=== PATIENT | female | born 1965 | race Caucasian/White ===

== ENCOUNTER → 2019-10-12 | Outpatient (REF) | payer MEDICARE ==
[2019-10-12 13:31] LABS: CHOLESTEROL RISK RATIO 2.359 (<5)
== END ==
LOC: M SFHCADAM 10:44
PROVIDERS: ATTEND Physician Assistant Medical
DX: E78.2 Mixed hyperlipidemia (principal)

== ENCOUNTER → 2019-10-12 | Outpatient (CLI) | payer MEDICARE ==
[2019-10-12 13:05] LABS: BASO # 0.1 10^3/uL (0.0-0.2); BASO % 1.1 % (0.0-1.0); EOS # 0.1 10^3/uL (0.0-0.5); EOS % 1.3 % (0.0-3.0); HEMATOCRIT 42.9 % (36.0-47.0); HEMOGLOBIN 13.6 g/dl (12.0-15.5); LYMPH # 1.6 10^3/uL (1.5-5.0); LYMPH % 24.8 % (24.0-44.0); MEAN CORPUSCULAR HEMOGLOBIN 29.3 pg (27.0-33.0); MEAN CORPUSCULAR HGB CONC 31.7 g/dl (32.0-36.5); MEAN CORPUSCULAR VOLUME 92.5 fl (80.0-96.0); MONO # 0.5 10^3/uL (0.0-0.8); MONO % 8.2 % (0.0-5.0); NEUTROPHILS # 4.1 10^3/uL (1.5-8.5); NEUTROPHILS % 64.3 % (36.0-66.0); PLATELET COUNT, AUTOMATED 416 10^3/uL (150-450); RED BLOOD COUNT 4.64 10^6/uL (4.00-5.40); WHITE BLOOD COUNT 6.3 10^3/uL (4.0-10.0)
[2019-10-12 13:33] LABS: HEMOGLOBIN A1c 5.7 %
[2019-10-12 13:40] LABS: ALBUMIN 3.6 GM/DL (3.2-5.2); ALT/SGPT 27 U/L (12-78); BILIRUBIN,TOTAL 0.3 MG/DL (0.2-1.0); BLOOD UREA NITROGEN 11 MG/DL (7-18); CALCIUM LEVEL 8.9 MG/DL (8.5-10.1); CARBON DIOXIDE LEVEL 26 MEQ/L (21-32); CHLORIDE LEVEL 111 MEQ/L (98-107); CREATININE FOR GFR 0.79 MG/DL (0.55-1.30); GLOMERULAR FILTRATION RATE > 60.0 (>51); GLUCOSE, FASTING 55 MG/DL (70-100); POTASSIUM SERUM 4.4 MEQ/L (3.5-5.1); RHEUMATOID FACTOR QUANT < 10.0 IU/ML (<15.0); SODIUM LEVEL 143 MEQ/L (136-145); VITAMIN B12 LEVEL 916 PG/ML
[2019-10-12 13:41] LABS: FOLATE > 24.0 NG/ML
[2019-10-12 13:47] LABS: ERYTHROCYTE SEDIMENTATION RATE 28 mm/hr (0-30)
== END ==
LOC: M LABDRWAD 11:05
PROVIDERS: ATTEND Physician Assistant Medical
DX: G62.9 Polyneuropathy, unspecified (principal); R25.8 Other abnormal involuntary movements; Z79.899 Other long term (current) drug therapy

== ENCOUNTER → 2019-10-26 | Outpatient (CLI) | payer MEDICARE ==
[~2019-10-26] MED LIST: METHACHOLINE KIT (J7674) INH ONE
--- NOTE | 2019-10-26 13:01 | PFTRPT ---
Height: 63.50 Inches Weight: 187.00 Lbs BSA: 1.89 Diagnosis: R05 DATE OF STUDY: 10/26/2019 ORDERED BY: Jayde Ordoñez INTERPRETATION: Study of excellent technical quality. Under protocol, methacholine was administered. At a dose of 10 mg (63.875 CDUs), a 23% decline in the FEV1 was noted. PC of 6.31 is significant. Flow rates did return to baseline post bronchodilator administration. IMPRESSION: Positive methacholine challenge study. MTDD
== END ==
LOC: M CARPUL 12:07
PROVIDERS: ATTEND Nurse Practitioner Family
DX: R05 Cough (principal)
CPT/HCPCS: 94070; 95070; J7674

== ENCOUNTER → 2020-08-11 | Outpatient (REF) | payer MEDICARE ==
[2020-08-11 12:30] LABS: BASO # 0.1 10^3/uL (0.0-0.2); BASO % 1.6 % (0.0-1.0); EOS # 0.2 10^3/uL (0.0-0.5); EOS % 2.5 % (0.0-3.0); HEMOGLOBIN 12.5 g/dl (12.0-15.5); LYMPH # 1.9 10^3/uL (1.5-5.0); LYMPH % 30.4 % (24.0-44.0); MEAN CORPUSCULAR HEMOGLOBIN 29.3 pg (27.0-33.0); MEAN CORPUSCULAR HGB CONC 31.3 g/dl (32.0-36.5); MEAN CORPUSCULAR VOLUME 93.9 fl (80.0-96.0); MONO # 0.5 10^3/uL (0.0-0.8); MONO % 7.5 % (2.0-8.0); NEUTROPHILS # 3.5 10^3/uL (1.5-8.5); NEUTROPHILS % 57.7 % (36.0-66.0); PLATELET COUNT, AUTOMATED 425 10^3/uL (150-450); RED BLOOD COUNT 4.26 10^6/uL (4.00-5.40); WHITE BLOOD COUNT 6.1 10^3/uL (4.0-10.0)
[2020-08-11 12:47] LABS: ALBUMIN 3.4 GM/DL (3.2-5.2); ALT/SGPT 26 U/L (12-78); BILIRUBIN,TOTAL 0.3 MG/DL (0.2-1.0); BLOOD UREA NITROGEN 9 MG/DL (7-18); CALCIUM LEVEL 9.1 MG/DL (8.5-10.1); CARBON DIOXIDE LEVEL 29 MEQ/L (21-32); CHLORIDE LEVEL 112 MEQ/L (98-107); CHOLESTEROL LEVEL 178 MG/DL (<200); CHOLESTEROL RISK RATIO 2.282 (<5); CREATININE FOR GFR 0.67 MG/DL (0.55-1.30); GLOMERULAR FILTRATION RATE > 60.0 (>51); GLUCOSE, FASTING 87 MG/DL (70-100); HDL CHOLESTEROL 78 MG/DL (>40); LDL CHOLESTEROL 82 MG/DL (<100); NON-HDL-C 100 MG/DL; POTASSIUM SERUM 4.7 MEQ/L (3.5-5.1); SODIUM LEVEL 143 MEQ/L (136-145); TOTAL 25(OH) VITAMIN D 45.4 NG/ML (30.0-100.0); TOTAL PROTEIN 6.7 GM/DL (6.4-8.2); TRIGLYCERIDES LEVEL 92 MG/DL (<150)
== END ==
LOC: M SFHCADAM 07:50
PROVIDERS: ATTEND Physician Assistant Medical
DX: E78.2 Mixed hyperlipidemia (principal); E66.01 Morbid (severe) obesity due to excess calories; E55.9 Vitamin D deficiency, unspecified; K21.9 Gastro-esophageal reflux disease without esophagitis

== ENCOUNTER 2020-12-27 17:15 | Emergency (ER) | payer MEDICARE, BC ==
[~2020-12-27] VITALS: Ht 161.3 cm; Wt 98.5 kg
[2020-12-27] MEDS ORDERED: CICL0.7739 (17:25)
[2020-12-27] MEDS ORDERED: OMEP1CAP73 (17:25)
[2020-12-27] MEDS ORDERED: METH2.5T48 (17:25)
[2020-12-27] MEDS ORDERED: EFFE75CA2 (17:25)
[2020-12-27] MEDS ORDERED: FLUC150T (17:25)
[2020-12-27] MEDS ORDERED: ESTR10TA (17:25)
[2020-12-27] MEDS ORDERED: METO1TAB7 (17:25)
--- NOTE | 2020-12-27 18:03 | ECGEPIP ---
[facility] [place] - ED Test Date: 2020-12-27 Pat Name: VICENTE ROCKWELL Department: Room: - Gender: Female Medication Technician: RODERICK : 1965 Requested By: SHADI Calvo Order Number: [id number] Reading MD: Paco Orellana Measurements Intervals [place] Rate: 69 P: 32 FL: 170 QRS: 3 QRSD: 84 T: 4 QT: 404 QTc: 432 Interpretive Statements Normal sinus rhythm NONSPECIFIC T WAVE ABNORMALITY(S) NO PRIORS FOR COMPARISON Electronically Signed on 12-27-2020 18:03:32 EDT by Paco Orellana
[2020-12-27 19:57] LABS: VENOUS BASE EXCESS 1.7 (-2.0-2.0); VENOUS HCO3 29.3 MEQ/L (23.0-27.0); VENOUS O2 SATURATION 49.2 % (60.0-80.0); VENOUS PARTIAL PRESSURE CO2 59.3 mmHg (38.0-50.0); VENOUS PARTIAL PRESSURE O2 27.7 mmHg (30.0-50.0); VENOUS PH 7.311 UNITS (7.330-7.430); VENOUS STANDARD HCO3 24.9 MEQ/L; VENOUS TOTAL CO2 31.1 MEQ/L (24.0-28.0)
[2020-12-27] MEDS ORDERED: ISOVUE-370 76% 100ML VIAL As Ordered ONE (20:17)
[2020-12-27 20:28] LABS: INR 0.95; PROTHROMBIN TIME 12.9 SECONDS (12.5-14.3)
[2020-12-27 20:29] LABS: PARTIAL THROMBOPLASTIN TIME 28.8 SECONDS (24.2-38.5)
[2020-12-27 20:30] LABS: CK-MB VALUE MASS < 1.0 NG/ML (<3.6); CPK CREATINE PHOSPHOKINASE 73 U/L (26-192); MB/CK RELATIVE INDEX 1.37 (< OR =4); TROPONIN I < 0.02 NG/ML (< 0.10)
--- NOTE | 2020-12-27 21:03 | REPVR ---
PROCEDURE INFORMATION: Exam: CTA Chest With Contrast Exam date and time: 12/27/2020 8:21 PM Age: 55 years old Clinical indication: Pain; Shortness of breath; Chest pressure; Additional info: SOB, pleuritic chest pain TECHNIQUE: Imaging protocol: Computed tomographic angiography of the chest with contrast. 3D rendering (Not supervised by radiologist): MIP and/or 3D reconstructed images were created by the technologist. Radiation optimization: All CT scans at this facility use at least one of these dose optimization techniques: automated exposure control; mA and/or kV adjustment per patient size (includes targeted exams where dose is matched to clinical indication); or iterative reconstruction. Contrast material: ISOVUE 370; Contrast volume: 75 ml; Contrast route: INTRAVENOUS (IV); COMPARISON: CT CHEST W/O CONTRAST - OUTSIDE PRIOR 12/02/2018 10:19 AM FINDINGS: Pulmonary arteries: There are no pulmonary emboli. Aorta: There is no aortic dissection or aneurysm. There is mild atherosclerosis in the thoracic aorta. Lungs: Multiple small noncalcified pulmonary parenchymal nodules demonstrated which are stable in size with the exception of a 4.7 mm spiculated lesion in the superior segment of the right lower lobe which has increased slightly in size, worrisome for neoplasm. Continued close interval follow-up at 3 months based on Fleischner guidelines suggested. Pleural spaces: Small left pleural effusion. Heart: There is mild atherosclerotic calcification of the coronary arteries. Lymph nodes: Unremarkable. No enlarged lymph nodes. Stomach and bowel: This patient is status post gastric bypass surgery. Bones/joints: Unremarkable. No acute fracture. Soft tissues: Unremarkable. IMPRESSION: 1. Multiple small noncalcified pulmonary parenchymal nodules demonstrated which are stable in size with the exception of a 4.7 mm spiculated lesion in the superior segment of the right lower lobe which has increased slightly in size, worrisome for neoplasm. Continued close interval follow-up at 3 months based on Fleischner guidelines or suspicious nodules suggested. 2. There is no aortic dissection or aneurysm. 3. There are no pulmonary emboli. 4. This patient is status post gastric bypass surgery. Electronically signed by: Bennett Maria On 12/27/2020 21:02:32 PM
[2020-12-27] MEDS ORDERED: ANEC4CRE3 TOP (22:05)
[2020-12-27] MEDS ORDERED: KETOROLAC 30 MG/ML 1ML VIAL IV ONE (22:10)
[2020-12-27 22:16] VITALS: BP 166/83
--- NOTE | 2020-12-31 15:32 | ED PDOC ---
Post-Departure Follow-Up radiology rpeor tfaxed to Dana Clark MD Dec 31, 2020 15:32
== END 2020-12-27 22:41 | disposition home or self-care (01) ==
LOC: M ED 17:15
DX: R09.1 Pleurisy (principal); D38.1 Neoplasm of uncertain behavior of trachea, bronchus and lung; I10 Essential (primary) hypertension; M79.7 Fibromyalgia; M32.9 Systemic lupus erythematosus, unspecified; I73.00 Raynaud's syndrome without gangrene; Z79.899 Other long term (current) drug therapy
CPT/HCPCS: 36600; 71275; 82550; 82553; 82803; 84484; 85610; 85730; 93005; 96374; 99284; J1885; Q9967

== ENCOUNTER → 2020-12-27 | Outpatient (REF) | payer MEDICARE, BC ==
[~2020-12-27] MED LIST changes: +ANEC4CRE3 TOP; +CICL0.7739; +EFFE75CA2; +ESTR10TA; +FLUC150T; +METH2.5T48; -METHACHOLINE KIT (J7674) INH ONE; +METO1TAB7; +OMEP1CAP73
[2020-12-27 15:17] LABS: HEMOGLOBIN 12.7 g/dl (12.0-15.5); MEAN CORPUSCULAR HEMOGLOBIN 29.1 pg (27.0-33.0); MEAN CORPUSCULAR HGB CONC 31.8 g/dl (32.0-36.5); MEAN CORPUSCULAR VOLUME 91.7 fl (80.0-96.0); PLATELET COUNT, AUTOMATED 406 10^3/uL (150-450); RED BLOOD COUNT 4.36 10^6/uL (4.00-5.40); WHITE BLOOD COUNT 8.5 10^3/uL (4.0-10.0)
[2020-12-27 15:52] LABS: ALBUMIN 3.6 GM/DL (3.2-5.2); ALT/SGPT 46 U/L (12-78); BILIRUBIN,TOTAL 0.2 MG/DL (0.2-1.0); BLOOD UREA NITROGEN 9 MG/DL (7-18); C REACTIVE PROTEIN QUANTITATIV 0.91 MG/DL (0.00-0.30); CALCIUM LEVEL 9.2 MG/DL (8.5-10.1); CARBON DIOXIDE LEVEL 30 MEQ/L (21-32); CHLORIDE LEVEL 109 MEQ/L (98-107); CREATININE FOR GFR 0.66 MG/DL (0.55-1.30); GLOMERULAR FILTRATION RATE > 60.0 (>51); GLUCOSE, FASTING 35 MG/DL (70-100); POTASSIUM SERUM 4.2 MEQ/L (3.5-5.1); SODIUM LEVEL 143 MEQ/L (136-145); TOTAL PROTEIN 7.5 GM/DL (6.4-8.2)
[2020-12-27 17:01] LABS: ERYTHROCYTE SEDIMENTATION RATE 39 mm/hr (0-30)
== END ==
LOC: M SFHCADAM 11:50
PROVIDERS: ATTEND Physician Assistant
DX: R07.81 Pleurodynia (principal)

== ENCOUNTER → 2020-12-27 | Outpatient (CLI) | payer MEDICARE, BC ==
--- NOTE | 2020-12-27 12:32 | REP ---
INDICATION: PLEURITIC CHEST PAIN. COMPARISON: Comparison is made with images from chest CT study dated December 02, 2018. TECHNIQUE: Two views.. FINDINGS: There is blunting of the left lateral and left posterior pleural angle consistent with small left pleural effusion. The heart is mildly enlarged. Heart size is felt to be unchanged. The effusion is new finding. Lung malik are otherwise clear. The right pleural angles are sharp. Pulmonary vasculature is not increased. No bony abnormality is seen. IMPRESSION: Blunting of the left lateral and posterior pleural angle indicating small left pleural effusion. Mildly prominent heart unchanged. Otherwise no acute disease.. <Electronically signed by Juan Mcnally > 12/27/20 [id number]
== END ==
LOC: M ADAMS 11:54
PROVIDERS: ATTEND Physician Assistant
DX: R91.8 Other nonspecific abnormal finding of lung field (principal); R07.81 Pleurodynia

== ENCOUNTER → 2021-01-25 | Outpatient (REF) | payer MEDICARE, BC ==
[2021-01-25 14:10] LABS: BLOOD UREA NITROGEN 10 MG/DL (7-18); CALCIUM LEVEL 8.9 MG/DL (8.5-10.1); CARBON DIOXIDE LEVEL 27 MEQ/L (21-32); CHLORIDE LEVEL 110 MEQ/L (98-107); CREATININE FOR GFR 0.69 MG/DL (0.55-1.30); GLOMERULAR FILTRATION RATE > 60.0 (>51); GLUCOSE, FASTING 92 MG/DL (70-100); POTASSIUM SERUM 4.5 MEQ/L (3.5-5.1); SODIUM LEVEL 142 MEQ/L (136-145)
== END ==
LOC: M SFHCADAM 10:12
PROVIDERS: ATTEND Physician Assistant Medical
DX: E16.2 Hypoglycemia, unspecified (principal)

== ENCOUNTER → 2021-03-26 | Outpatient (CLI) | payer MEDICARE, BC ==
--- NOTE | 2021-03-26 10:36 | REP ---
INDICATION: ABN FINDING OF LUNG. COMPARISON: 12/27/2020. TECHNIQUE: CT chest performed without the use of intravenous contrast. Sagittal and coronal reconstruction images are performed. FINDINGS: Lungs: At the site of the previously noted spiculated nodular opacity in the superior segment of the right lower lobe, that opacity has decreased in size now measuring 3 mm. Just above that there is a 2-3 mm nodular density on image 29. There is a subpleural nodular density in the left upper lobe which measures about 2-3 mm as seen on image 22. there is mild scattered fibrotic change diffusely bilaterally. Mediastinum: No gross adenopathy. Jocelyne: No gross adenopathy. Axilla: No gross adenopathy. Pleura: No effusion. Heart: Not enlarged. Thoracic aorta: No aneurysm. Upper abdominal structures: There has been prior gastric surgery. There is a 1.5 cm right adrenal adenoma. Visualized osseous structures: Unremarkable. IMPRESSION: At the site of the previously noted spiculated nodular opacity in the superior segment of the right lower lobe, that opacity has decreased in size now measuring 3 mm. This is compatible with a resolving inflammatory nodular opacity. Just above that there is a 2-3 mm nodular density on image 29. There is a subpleural nodular density in the left upper lobe which measures about 2-3 mm as seen on image 22. there is mild scattered fibrotic change diffusely bilaterally. <Electronically signed by Malcolm Gomes > 03/26/21 1032
== END ==
LOC: M RAD 09:20
PROVIDERS: ATTEND Nurse Practitioner Family
DX: R91.8 Other nonspecific abnormal finding of lung field (principal)

== ENCOUNTER → 2022-04-02 | Outpatient (CLI) | payer MEDICARE, BC ==
[~2022-04-02] MED LIST changes: -FLUC150T; +FLUC150T9
== END ==
LOC: M PLAIMG 13:27
PROVIDERS: ATTEND Nurse Practitioner Family
DX: R91.8 Other nonspecific abnormal finding of lung field (principal)

== ENCOUNTER → 2022-04-10 | Outpatient (REF) | payer MEDICARE, BC ==
[2022-04-10 12:52] LABS: HEMATOCRIT 37.8 % (36.0-47.0)
[2022-04-10 12:55] LABS: BASO # 0.1 10^3/uL (0.0-0.2); BASO % 1.1 % (0.0-1.0); EOS # 0.1 10^3/uL (0.0-0.5); EOS % 2.1 % (0.0-3.0); HEMATOCRIT 38.1 % (36.0-47.0); HEMOGLOBIN 12.2 g/dl (12.0-15.5); LYMPH # 2.1 10^3/uL (1.5-5.0); LYMPH % 33.7 % (24.0-44.0); MEAN CORPUSCULAR HEMOGLOBIN 31.9 pg (27.0-33.0); MEAN CORPUSCULAR VOLUME 99.5 fl (80.0-96.0); MONO # 0.5 10^3/uL (0.0-0.8); NEUTROPHILS # 3.4 10^3/uL (1.5-8.5); NEUTROPHILS % 54.8 % (36.0-66.0); PLATELET COUNT, AUTOMATED 381 10^3/uL (150-450); RED BLOOD COUNT 3.83 10^6/uL (4.00-5.40); WHITE BLOOD COUNT 6.1 10^3/uL (4.0-10.0)
[2022-04-10 13:42] LABS: ALBUMIN 3.6 GM/DL (3.2-5.2); ALT/SGPT 24 U/L (12-78); BILIRUBIN,TOTAL 0.2 MG/DL (0.2-1.0); BLOOD UREA NITROGEN 9 MG/DL (7-18); CALCIUM LEVEL 9.1 MG/DL (8.5-10.1); CARBON DIOXIDE LEVEL 30 MEQ/L (21-32); CHLORIDE LEVEL 107 MEQ/L (98-107); CHOLESTEROL LEVEL 196 MG/DL (<200); CHOLESTEROL RISK RATIO 2.305 (<5); CREATININE FOR GFR 0.62 MG/DL (0.55-1.30); FERRITIN 14 NG/ML (8-252); GLOMERULAR FILTRATION RATE > 60.0 (>51); GLUCOSE, FASTING 77 MG/DL (70-100); HDL CHOLESTEROL 85 MG/DL (>40); IRON (FE) 83 UG/DL (50-170); LDL CHOLESTEROL 88 MG/DL (<100); NON-HDL-C 111 MG/DL; PERCENT SATURATION 23.6 % (13.2-45.0); POTASSIUM SERUM 4.5 MEQ/L (3.5-5.1); SODIUM LEVEL 140 MEQ/L (136-145); TOTAL IRON BINDING CAPACITY 352 UG/DL (250-450); TOTAL PROTEIN 6.7 GM/DL (6.4-8.2); TRIGLYCERIDES LEVEL 114 MG/DL (<150)
[2022-04-10 14:06] LABS: FOLATE 13.8 NG/ML; VITAMIN B12 LEVEL 1695 PG/ML
[2022-04-10 14:45] LABS: HEPATITIS B CORE ANTIBODY IGM NEGATIVE (NEGATIVE)
== END ==
LOC: M SFHCADAM 10:45
PROVIDERS: ATTEND Physician Assistant Medical
DX: M32.9 Systemic lupus erythematosus, unspecified (principal); E78.2 Mixed hyperlipidemia; E66.01 Morbid (severe) obesity due to excess calories; F33.1 Major depressive disorder, recurrent, moderate; E55.9 Vitamin D deficiency, unspecified; J45.909 Unspecified asthma, uncomplicated; Z98.84 Bariatric surgery status; Z11.59 Encounter for screening for other viral diseases; D50.9 Iron deficiency anemia, unspecified

== ENCOUNTER → 2022-08-14 | Outpatient (REF) | payer MEDICARE, BC | LOC: M SFHCADAM 10:44 | PROVIDERS: ATTEND Physician Assistant Medical | DX: Z11.59 Encounter for screening for other viral diseases (principal) ==

== ENCOUNTER 2022-10-04 08:48 | Day surgery (SDC) | payer MEDICARE, BC ==
[~2022-10-04] VITALS: Ht 160 cm; Wt 74.3 kg
[~2022-10-04 08:48] MED LIST changes: +ADDE20TA PO; +AMPH1CAP16 PO; +BISO5TAB14 PO; +BREO1INH INH; +CONC27TA4 PO; +DESV100T3 PO; +FOLI0.4T5 PO; -METH2.5T48; +METH2.5T48 PO; +NS 1,000 ML IV ONE; +OMEP-173 PO; +ONDA-83 PO; +OZEM2INJ SC; +PHEN37.58 PO; +PRAV20TA2 PO; +PRIS100T PO; +TOPI25TA10 PO; +TRAZ-252 PO; +VITA500T40 PO; +VITMTA PO
[2022-10-04] MEDS ORDERED: LIDOCAINE 2% 100MG/5ML SDV (FOR ANES.) As Ordered ONE (09:16)
[2022-10-04] MEDS ORDERED: propofoL 200 MG/20 ML VIAL As Ordered ONE (09:16)
[2022-10-04] MEDS ORDERED: SODIUM CHLORIDE 0.9% INJ 10 ML SYR IV PRN (10:55)
[2022-10-04 11:07] VITALS: BP 136/80
== END 2022-10-04 11:28 | disposition home or self-care (01) ==
LOC: M OPP 08:48
PROVIDERS: ATTEND Internal Medicine Gastroenterology
DX: Z12.11 Encounter for screening for malignant neoplasm of colon (principal); Z53.9 Procedure and treatment not carried out, unspecified reason; K22.89 Other specified disease of esophagus; K29.70 Gastritis, unspecified, without bleeding; Z98.0 Intestinal bypass and anastomosis status; Z79.51 Long term (current) use of inhaled steroids; Z79.899 Other long term (current) drug therapy
CPT/HCPCS: 43239; 88305; G0121

== ENCOUNTER → 2022-12-23 | Outpatient (REF) | payer MEDICARE, BC ==
[~2022-12-23] MED LIST changes: -NS 1,000 ML IV ONE
[2022-12-23 17:18] LABS: BASO % 0.6 % (0.0-1.0); EOS % 0.3 % (0.0-3.0); HEMATOCRIT 37.1 % (36.0-47.0); HEMOGLOBIN 12.1 g/dl (12.0-15.5); LYMPH # 0.8 10^3/uL (1.5-5.0); LYMPH % 11.6 % (24.0-44.0); MEAN CORPUSCULAR HGB CONC 32.6 g/dl (32.0-36.5); MEAN CORPUSCULAR VOLUME 92.1 fl (80.0-96.0); MONO # 0.7 10^3/uL (0.0-0.8); MONO % 10.7 % (2.0-8.0); NEUTROPHILS # 5.1 10^3/uL (1.5-8.5); NEUTROPHILS % 76.2 % (36.0-66.0); PLATELET COUNT, AUTOMATED 311 10^3/uL (150-450); RED BLOOD COUNT 4.03 10^6/uL (4.00-5.40); WHITE BLOOD COUNT 6.7 10^3/uL (4.0-10.0)
[2022-12-23 17:38] LABS: ERYTHROCYTE SEDIMENTATION RATE 51 mm/hr (0-30)
[2022-12-23 17:56] LABS: ALKALINE PHOSPHATASE 242 U/L (46-116); ALT/SGPT 86 U/L (7.0-40); AST/SGOT 57 U/L (<34); BILIRUBIN,TOTAL 0.6 MG/DL (0.3-1.2); BLOOD UREA NITROGEN 10 MG/DL (9-23); CALCIUM LEVEL 8.6 MG/DL (8.5-10.1); CARBON DIOXIDE LEVEL 26 MMOL/L (20-31); CHLORIDE LEVEL 101 MMOL/L (98-107); GLOMERULAR FILTRATION RATE > 60.0 (>51); GLUCOSE, FASTING 74 MG/DL (60-100); POTASSIUM SERUM 4.1 MMOL/L (3.5-5.1); SODIUM LEVEL 137 MMOL/L (136-145); TOTAL PROTEIN 6.4 G/DL (5.7-8.2)
== END ==
LOC: M SFHCADAM 14:10
PROVIDERS: ATTEND Family Medicine
DX: R51.9 Headache, unspecified (principal); Z79.899 Other long term (current) drug therapy

== ENCOUNTER → 2023-01-01 | Outpatient (REF) | payer MEDICARE, BC ==
[~2023-01-01] MED LIST changes: +PRED10TA2 PO; +SEMA1PEN2 SQ
[2023-01-01 14:03] LABS: ALBUMIN 2.9 G/DL (3.2-5.2); ALKALINE PHOSPHATASE 127 U/L (46-116); ALT/SGPT 23 U/L (7.0-40); AST/SGOT 11 U/L (<34); BILIRUBIN,TOTAL 0.4 MG/DL (0.3-1.2); BLOOD UREA NITROGEN 10 MG/DL (9-23); CALCIUM LEVEL 8.9 MG/DL (8.5-10.1); CARBON DIOXIDE LEVEL 29 MMOL/L (20-31); CHLORIDE LEVEL 103 MMOL/L (98-107); CREATININE FOR GFR 0.61 MG/DL (0.55-1.30); GLOMERULAR FILTRATION RATE > 60.0 (>51); GLUCOSE, FASTING 115 MG/DL (60-100); POTASSIUM SERUM 4.3 MMOL/L (3.5-5.1); SODIUM LEVEL 136 MMOL/L (136-145); TOTAL PROTEIN 6.1 G/DL (5.7-8.2)
== END ==
LOC: M SFHCADAM 10:38
PROVIDERS: ATTEND Physician Assistant Medical
DX: M31.6 Other giant cell arteritis (principal)

== ENCOUNTER 2023-01-03 10:18 | Day surgery (SDC) | payer MEDICARE, BC ==
[~2023-01-03] VITALS: Ht 160 cm; Wt 70.7 kg
[~2023-01-03 10:18] MED LIST changes: +ceFAZolin SOD 2 GM in IV 1 EA IV ONE
[2023-01-03] MEDS ORDERED: LR 1,000 ML IV SCH (10:35)
[2023-01-03] MEDS ORDERED: LIDOCAINE 1% MDV 20ML VIAL As Ordered ONE (11:59)
[2023-01-03] MEDS ORDERED: MIDAZOLAM INJ 2MG/2ML VIAL As Ordered ONE (12:32)
[2023-01-03] MEDS ORDERED: LIDOCAINE 2% 100MG/5ML SDV (FOR ANES.) As Ordered ONE (12:32)
[2023-01-03] MEDS ORDERED: fentaNYL 100 MCG/2 ML INJECTION As Ordered ONE (12:32)
[2023-01-03] MEDS ORDERED: propofoL 200 MG/20 ML VIAL As Ordered ONE (12:32)
[2023-01-03] MEDS ORDERED: SODIUM CHLORIDE 0.9% INJ 10 ML SYR IV PRN (13:15)
[2023-01-03 13:35] VITALS: BP 129/68; TEMP 97.7; O2SAT 98
[2023-01-04] MEDS ORDERED: SODIUM CHLORIDE 0.9% INJ 10 ML SYR IV SCH (09:00)
== END 2023-01-03 13:40 | disposition home or self-care (01) ==
LOC: M SDC 10:18
PROVIDERS: ATTEND Surgery Vascular Surgery
DX: M31.6 Other giant cell arteritis (principal); Z79.899 Other long term (current) drug therapy; Z98.84 Bariatric surgery status
CPT/HCPCS: 37609; 88305; 93005; J0690; J2250; J3010

== ENCOUNTER → 2023-03-27 | Outpatient (CLI) | payer MEDICARE, BC ==
[~2023-03-27] MED LIST changes: -ceFAZolin SOD 2 GM in IV 1 EA IV ONE
== END ==
LOC: M PLAIMG 08:01
PROVIDERS: ATTEND Nurse Practitioner Family
DX: R91.8 Other nonspecific abnormal finding of lung field (principal)

== ENCOUNTER → 2023-04-01 | Outpatient (REF) | payer MEDICARE, BC ==
[~2023-04-01] MED LIST changes: +FURO40TA2 PO
[2023-04-01 13:38] LABS: ALBUMIN 2.5 G/DL (3.2-5.2); ALKALINE PHOSPHATASE 123 U/L (46-116); ALT/SGPT 34 U/L (7.0-40); AST/SGOT 32 U/L (<34); BILIRUBIN,TOTAL 0.3 MG/DL (0.3-1.2); BLOOD UREA NITROGEN 13 MG/DL (9-23); CALCIUM LEVEL 8.2 MG/DL (8.5-10.1); CARBON DIOXIDE LEVEL 34 MMOL/L (20-31); CHLORIDE LEVEL 102 MMOL/L (98-107); CHOLESTEROL LEVEL 140 MG/DL (<200); CHOLESTEROL RISK RATIO 2.13 (<5); CREATININE FOR GFR 0.57 MG/DL (0.55-1.30); GLOMERULAR FILTRATION RATE > 60.0 (>51); GLUCOSE, FASTING 82 MG/DL (60-100); HDL CHOLESTEROL 65.6 MG/DL (>40); LDL CHOLESTEROL 56.8 MG/DL (<100); NON-HDL-C 74.4 MG/DL; POTASSIUM SERUM 3.8 MMOL/L (3.5-5.1); SODIUM LEVEL 140 MMOL/L (136-145); TOTAL PROTEIN 5.7 G/DL (5.7-8.2); TRIGLYCERIDES LEVEL 88 MG/DL (<150)
[2023-04-01 13:39] LABS: BASO % 0.6 % (0.0-1.0); EOS # 0.1 10^3/uL (0.0-0.5); EOS % 0.7 % (0.0-3.0); HEMATOCRIT 36.7 % (36.0-47.0); LYMPH # 1.1 10^3/uL (1.5-5.0); LYMPH % 16.1 % (24.0-44.0); MEAN CORPUSCULAR HEMOGLOBIN 29.9 pg (27.0-33.0); MEAN CORPUSCULAR HGB CONC 32.7 g/dl (32.0-36.5); MEAN CORPUSCULAR VOLUME 91.5 fl (80.0-96.0); MONO # 0.3 10^3/uL (0.0-0.8); MONO % 4.5 % (2.0-8.0); NEUTROPHILS # 5.4 10^3/uL (1.5-8.5); NEUTROPHILS % 77.8 % (36.0-66.0); PLATELET COUNT, AUTOMATED 540 10^3/uL (150-450); RED BLOOD COUNT 4.01 10^6/uL (4.00-5.40); WHITE BLOOD COUNT 6.9 10^3/uL (4.0-10.0)
[2023-04-01 13:41] LABS: THYROID STIMULATING HORMONE 3.715 uIU/ML (0.55-4.78)
[2023-04-01 13:42] LABS: TOTAL 25(OH) VITAMIN D 65.2 NG/ML (20.0-100.0)
[2023-04-01 13:56] LABS: CREATININE, URINE 117.5 MG/DL; MAU/CREAT RATIO 3.4 MCG/MG (0.0-30.0)
[2023-04-01 13:57] LABS: HEMOGLOBIN A1c 4.6 % (4.0-6.0)
[2023-04-01 14:12] LABS: APPEARANCE, URINE CLEAR (CLEAR); BACTERIA, URINE AUTO NEGATIVE (NEGATIVE); BILIRUBIN, URINE AUTO NEGATIVE (NEGATIVE); BLOOD, URINE BLOOD NEGATIVE (NEGATIVE); COLOR, URINE YELLOW (YELLOW); GLUCOSE, URINE (UA) AUTO NEGATIVE (NEGATIVE); KETONE, URINE AUTO TRACE mg/dL (NEGATIVE); LEUKOCYTE ESTERASE, URINE AUTO TRACE (NEGATIVE); MUCUS, URINE SMALL (NEGATIVE); NITRITE, URINE AUTO NEGATIVE (NEGATIVE); PROTEIN, URINE AUTO NEGATIVE (NEGATIVE); RBC, URINE AUTO 0 /HPF (0-3); SQUAMOUS EPITHELIAL CELL UR AU 1 /HPF (0-6); WBC, URINE AUTO 2 /HPF (0-3)
== END ==
LOC: M SFHCADAM 09:31
PROVIDERS: ATTEND Physician Assistant Medical
DX: M32.9 Systemic lupus erythematosus, unspecified (principal); E78.2 Mixed hyperlipidemia; F33.1 Major depressive disorder, recurrent, moderate; E55.9 Vitamin D deficiency, unspecified; K21.9 Gastro-esophageal reflux disease without esophagitis; K22.70 Barrett's esophagus without dysplasia; J45.909 Unspecified asthma, uncomplicated; R60.9 Edema, unspecified; M25.50 Pain in unspecified joint; Z79.899 Other long term (current) drug therapy

== ENCOUNTER → 2023-04-03 | Outpatient (CLI) | payer MEDICARE, BC | LOC: M WHC 10:41 | PROVIDERS: ATTEND Advanced Practice Midwife | DX: Z12.31 Encounter for screening mammogram for malignant neoplasm of breast (principal); R92.8 Other abnormal and inconclusive findings on diagnostic imaging of breast ==

== ENCOUNTER → 2023-04-03 | Outpatient (CLI) | payer MEDICARE, BC | LOC: M WHC 10:42 | PROVIDERS: ATTEND Advanced Practice Midwife | DX: M85.851 Other specified disorders of bone density and structure, right thigh (principal); M85.852 Other specified disorders of bone density and structure, left thigh; Z13.820 Encounter for screening for osteoporosis ==

== ENCOUNTER → 2023-04-03 | Outpatient (REF) | payer MEDICARE, BC | LOC: M PLALAB 12:00 | PROVIDERS: ATTEND Advanced Practice Midwife | DX: Z12.4 Encounter for screening for malignant neoplasm of cervix (principal); N95.2 Postmenopausal atrophic vaginitis | CPT/HCPCS: 87624; G0123 ==

== ENCOUNTER → 2023-04-10 | Day surgery (SDC) | payer MEDICARE, BC ==
[~2023-04-10] VITALS: Ht 162.6 cm; Wt 62.1 kg
[~2023-04-10] MED LIST changes: +GLYCOPYRROLATE INJ 0.2 MG/ML 2 ML VIAL As Ordered ONE; +LIDOCAINE 2% 100MG/5ML SDV (FOR ANES.) As Ordered ONE; +NS 1,000 ML IV ONE; +SODIUM CHLORIDE 0.9% INJ 10 ML SYR IV PRN; +SODIUM CHLORIDE 0.9% INJ 10 ML SYR IV SCH; +propofoL 200 MG/20 ML VIAL As Ordered ONE
[2023-04-10 10:00] VITALS: TEMP 97.1
[2023-04-10 10:29] VITALS: BP 163/92; O2SAT 100
== END | disposition home or self-care (01) ==
LOC: M OPP 07:58
PROVIDERS: ATTEND Internal Medicine Gastroenterology
DX: Z12.11 Encounter for screening for malignant neoplasm of colon (principal); G47.30 Sleep apnea, unspecified; Z98.84 Bariatric surgery status; Z79.02 Long term (current) use of antithrombotics/antiplatelets; Z79.631 Long term (current) use of antimetabolite agent; Z79.85 Long-term (current) use of injectable non-insulin antidiabetic drugs; Z79.899 Other long term (current) drug therapy

== ENCOUNTER → 2023-04-14 | Outpatient (CLI) | payer MEDICARE, BC ==
[~2023-04-14] MED LIST changes: -GLYCOPYRROLATE INJ 0.2 MG/ML 2 ML VIAL As Ordered ONE; -LIDOCAINE 2% 100MG/5ML SDV (FOR ANES.) As Ordered ONE; -NS 1,000 ML IV ONE; -SODIUM CHLORIDE 0.9% INJ 10 ML SYR IV PRN; -SODIUM CHLORIDE 0.9% INJ 10 ML SYR IV SCH; -propofoL 200 MG/20 ML VIAL As Ordered ONE
== END ==
LOC: M WHC 07:33
PROVIDERS: ATTEND Physician Assistant Medical
DX: K76.0 Fatty (change of) liver, not elsewhere classified (principal)

== ENCOUNTER → 2023-06-11 | Outpatient (CLI) | payer OTHER, BC | LOC: M WUC 10:19 | PROVIDERS: ATTEND Internal Medicine Rheumatology | DX: M35.01 Sjogren syndrome with keratoconjunctivitis (principal); R76.8 Other specified abnormal immunological findings in serum; H57.12 Ocular pain, left eye; R51.9 Headache, unspecified; I73.00 Raynaud's syndrome without gangrene; R06.02 Shortness of breath ==

== ENCOUNTER → 2023-07-02 | Outpatient (REF) | payer OTHER, BC ==
[2023-07-02 16:18] LABS: APPEARANCE, URINE HAZY (CLEAR); BACTERIA, URINE AUTO 1+ (NEGATIVE); BILIRUBIN, URINE AUTO NEGATIVE (NEGATIVE); BLOOD, URINE BLOOD NEGATIVE (NEGATIVE); COLOR, URINE YELLOW (YELLOW); GLUCOSE, URINE (UA) AUTO NEGATIVE (NEGATIVE); KETONE, URINE AUTO NEGATIVE (NEGATIVE); LEUKOCYTE ESTERASE, URINE AUTO 3+ (NEGATIVE); MUCUS, URINE SMALL (NEGATIVE); NITRITE, URINE AUTO NEGATIVE (NEGATIVE); PROTEIN, URINE AUTO NEGATIVE (NEGATIVE); RBC, URINE AUTO 8 /HPF (0-3); SQUAMOUS EPITHELIAL CELL UR AU 8 /HPF (0-6); TRANSITIONAL EPITHELIAL AUTO 2 /HPF; UROBILINOGEN, URINE AUTO 0.2 mg/dL (0.0-2.0); WBC, URINE AUTO 32 /HPF (0-3)
== END ==
LOC: M SFHCADAM 12:07
PROVIDERS: ATTEND Physician Assistant Medical
DX: R52 Pain, unspecified (principal); R35.0 Frequency of micturition

== ENCOUNTER → 2023-07-17 | Outpatient (REF) | payer OTHER, BC | LOC: M SFHCRHEU 15:36 | PROVIDERS: ATTEND Internal Medicine Rheumatology | DX: Z53.9 Procedure and treatment not carried out, unspecified reason (principal) ==

== ENCOUNTER → 2023-07-30 | Outpatient (REF) | payer MEDICARE, BC | LOC: M SFHCADAM 12:32 | PROVIDERS: ATTEND Physician Assistant | DX: R35.0 Frequency of micturition (principal) ==

== ENCOUNTER → 2023-08-21 | Outpatient (REF) | payer OTHER, BC | LOC: M SFHCRHEU 09:46 | PROVIDERS: ATTEND Internal Medicine Rheumatology | DX: M35.01 Sjogren syndrome with keratoconjunctivitis (principal); R76.8 Other specified abnormal immunological findings in serum; H57.12 Ocular pain, left eye; R51.9 Headache, unspecified; I73.00 Raynaud's syndrome without gangrene; R06.02 Shortness of breath; Z15.89 Genetic susceptibility to other disease; Z53.9 Procedure and treatment not carried out, unspecified reason ==

== ENCOUNTER → 2023-11-17 | Outpatient (CLI) | payer MEDICARE, BC ==
[2023-11-17 11:21] LABS: APPEARANCE, URINE CLEAR (CLEAR); BACTERIA, URINE AUTO NEGATIVE (NEGATIVE); BILIRUBIN, URINE AUTO NEGATIVE (NEGATIVE); BLOOD, URINE BLOOD NEGATIVE (NEGATIVE); COLOR, URINE YELLOW (YELLOW); GLUCOSE, URINE (UA) AUTO NEGATIVE (NEGATIVE); KETONE, URINE AUTO NEGATIVE (NEGATIVE); LEUKOCYTE ESTERASE, URINE AUTO TRACE (NEGATIVE); NITRITE, URINE AUTO NEGATIVE (NEGATIVE); PROTEIN, URINE AUTO NEGATIVE (NEGATIVE); RBC, URINE AUTO 1 /HPF (0-3); SPECIFIC GRAVITY URINE AUTO 1.014 (1.002-1.035); SQUAMOUS EPITHELIAL CELL UR AU 0 /HPF (0-6); UROBILINOGEN, URINE AUTO 0.2 mg/dL (0.0-2.0); WBC, URINE AUTO 2 /HPF (0-3)
[2023-11-17 11:30] LABS: BASO # 0.1 10^3/uL (0.0-0.2); BASO % 1.4 % (0.0-1.0); EOS # 0.3 10^3/uL (0.0-0.5); HEMATOCRIT 36.9 % (36.0-47.0); HEMOGLOBIN 11.6 g/dl (12.0-15.5); LYMPH # 1.6 10^3/uL (1.5-5.0); LYMPH % 31.7 % (24.0-44.0); MEAN CORPUSCULAR HEMOGLOBIN 29.1 pg (27.0-33.0); MEAN CORPUSCULAR HGB CONC 31.4 g/dl (32.0-36.5); MEAN CORPUSCULAR VOLUME 92.5 fl (80.0-96.0); MONO # 0.5 10^3/uL (0.0-0.8); MONO % 9.4 % (2.0-8.0); NEUTROPHILS # 2.6 10^3/uL (1.5-8.5); NEUTROPHILS % 52.1 % (36.0-66.0); PLATELET COUNT, AUTOMATED 379 10^3/uL (150-450); RED BLOOD COUNT 3.99 10^6/uL (4.00-5.40)
[2023-11-17 11:43] LABS: ERYTHROCYTE SEDIMENTATION RATE 32 mm/hr (0-30)
[2023-11-17 11:55] LABS: TOTAL PROTEIN,RANDOM URINE 6.6 MG/DL (0.0-14.0)
[2023-11-17 12:00] LABS: C REACTIVE PROTEIN QUANTITATIV < 0.40 MG/DL (<1.0); CREATININE,RANDOM URINE 71.8 MG/DL
[2023-11-17 12:03] LABS: ALBUMIN 3.2 G/DL (3.2-5.2); ALKALINE PHOSPHATASE 127 U/L (46-116); ALT/SGPT 26 U/L (7.0-40); AST/SGOT 17 U/L (<34); BILIRUBIN,TOTAL 0.2 MG/DL (0.3-1.2); BLOOD UREA NITROGEN 11 MG/DL (9-23); CALCIUM LEVEL 9.1 MG/DL (8.5-10.1); CARBON DIOXIDE LEVEL 29 MMOL/L (20-31); CHLORIDE LEVEL 110 MMOL/L (98-107); CREATININE FOR GFR 0.73 MG/DL (0.55-1.30); GLOMERULAR FILTRATION RATE > 60.0 (>51); GLUCOSE, FASTING 90 MG/DL (60-100); POTASSIUM SERUM 4.7 MMOL/L (3.5-5.1); SODIUM LEVEL 143 MMOL/L (136-145); TOTAL PROTEIN 6.2 G/DL (5.7-8.2)
[2023-11-17 13:57] LABS: COMPLEMENT C4 23.5 MG/DL (12-36)
[2023-11-21 21:02] LABS: COMPLEMENT TOTAL (CH50) 59 U/mL (31-60)
[2023-11-22 14:48] LABS: ANTI DS-DNA AB NEGATIVE (NEGATIVE)
== END ==
LOC: M PLALAB 07:41
PROVIDERS: ATTEND Internal Medicine Rheumatology
DX: M35.01 Sjogren syndrome with keratoconjunctivitis (principal); R76.8 Other specified abnormal immunological findings in serum; H57.12 Ocular pain, left eye; R51.9 Headache, unspecified; I73.00 Raynaud's syndrome without gangrene; R06.02 Shortness of breath; Z15.89 Genetic susceptibility to other disease

== ENCOUNTER → 2023-11-17 | Outpatient (CLI) | payer MEDICARE, BC | LOC: M PLAIMG 06:37 | PROVIDERS: ATTEND Internal Medicine Rheumatology | DX: M35.01 Sjogren syndrome with keratoconjunctivitis (principal); R76.8 Other specified abnormal immunological findings in serum; H57.12 Ocular pain, left eye; R51.9 Headache, unspecified; I73.00 Raynaud's syndrome without gangrene; R06.02 Shortness of breath; Z15.89 Genetic susceptibility to other disease ==

== ENCOUNTER → 2024-01-21 | Outpatient (REF) | payer MEDICARE, BC | LOC: M SFHCADAM 08:31 | PROVIDERS: ATTEND Internal Medicine Rheumatology | DX: M35.01 Sjogren syndrome with keratoconjunctivitis (principal) ==

== ENCOUNTER → 2024-03-24 | Outpatient (CLI) | payer MEDICARE, BC | LOC: M PLAIMG 08:42 | PROVIDERS: ATTEND Physician Assistant Medical | DX: R91.1 Solitary pulmonary nodule (principal) ==

== ENCOUNTER → 2024-04-07 | Outpatient (CLI) | payer MEDICARE, BC | LOC: M WHC 08:01 | PROVIDERS: ATTEND Nurse Practitioner Family | DX: Z12.31 Encounter for screening mammogram for malignant neoplasm of breast (principal); R92.323 Mammographic fibroglandular density, bilateral breasts ==

== ENCOUNTER → 2024-04-15 | Outpatient (REF) | payer MEDICARE, BC ==
[2024-04-15 13:39] LABS: BASO # 0.1 10^3/uL (0.0-0.2); BASO % 1.3 % (0.0-1.0); EOS # 0.1 10^3/uL (0.0-0.5); EOS % 2.5 % (0.0-3.0); HEMATOCRIT 37.3 % (36.0-47.0); HEMOGLOBIN 11.6 g/dl (12.0-15.5); LYMPH # 1.5 10^3/uL (1.5-5.0); LYMPH % 32.4 % (24.0-44.0); MEAN CORPUSCULAR HEMOGLOBIN 28.5 pg (27.0-33.0); MEAN CORPUSCULAR HGB CONC 31.1 g/dl (32.0-36.5); MEAN CORPUSCULAR VOLUME 91.6 fl (80.0-96.0); MONO # 0.5 10^3/uL (0.0-0.8); NEUTROPHILS # 2.5 10^3/uL (1.5-8.5); NEUTROPHILS % 53.6 % (36.0-66.0); PLATELET COUNT, AUTOMATED 413 10^3/uL (150-450); RED BLOOD COUNT 4.07 10^6/uL (4.00-5.40); WHITE BLOOD COUNT 4.7 10^3/uL (4.0-10.0)
[2024-04-15 13:43] LABS: C REACTIVE PROTEIN QUANTITATIV < 0.40 MG/DL (<1.0)
[2024-04-15 13:45] LABS: ALBUMIN 3.2 G/DL (3.2-5.2); ALKALINE PHOSPHATASE 139 U/L (35-104); ALT/SGPT 16 U/L (7.0-40); AST/SGOT 11 U/L (<34); BILIRUBIN,TOTAL 0.2 MG/DL (0.3-1.2); BLOOD UREA NITROGEN 9 MG/DL (9-23); CALCIUM LEVEL 9.6 MG/DL (8.5-10.1); CARBON DIOXIDE LEVEL 30 MMOL/L (20-31); CHLORIDE LEVEL 109 MMOL/L (98-107); GLOMERULAR FILTRATION RATE > 60.0 (>51); GLUCOSE, FASTING 63 MG/DL (60-100); POTASSIUM SERUM 4.5 MMOL/L (3.5-5.1); SODIUM LEVEL 142 MMOL/L (136-145); TOTAL PROTEIN 6.6 G/DL (5.7-8.2)
[2024-04-15 13:54] LABS: ERYTHROCYTE SEDIMENTATION RATE 30 mm/hr (0-30)
== END ==
LOC: M SFHCADAM 07:50
PROVIDERS: ATTEND Internal Medicine Rheumatology
DX: M35.01 Sjogren syndrome with keratoconjunctivitis (principal)

== ENCOUNTER → 2024-05-20 | Outpatient (REF) | payer MEDICARE, BC ==
[2024-05-20 13:35] LABS: CHOLESTEROL RISK RATIO 2.97 (<5)
[2024-05-20 13:37] LABS: THYROID STIMULATING HORMONE 2.635 uIU/ML (0.55-4.78); TOTAL 25(OH) VITAMIN D 35.2 NG/ML (20.0-100.0)
== END ==
LOC: M SFHCADAM 08:19
PROVIDERS: ATTEND Physician Assistant Medical
DX: E78.2 Mixed hyperlipidemia (principal); E66.01 Morbid (severe) obesity due to excess calories; E55.9 Vitamin D deficiency, unspecified; K76.0 Fatty (change of) liver, not elsewhere classified